=== PATIENT | male | born 1955 | race Caucasian/White ===

== ENCOUNTER 2021-02-27 09:32 | Outpatient (CLI) | payer OTHER ==
--- NOTE | 2021-02-27 10:15 | XRAY Report ---
PROCEDURE: Elbow 2 View RT INDICATIONS: BURSITIS, R ELBOW TECHNIQUE: AP and lateral views of the elbow were acquired. COMPARISON: None FINDINGS: Bones: No acute fractures or dislocations. No suspicious bony lesions. Small posteriorly: Spur. Soft tissues: Very small anterior elbow joint effusion. Moderate soft tissue swelling overlying the posterior elbow with more focal swelling overlying the olecranon. No suspicious soft tissue calcifica tions. IMPRESSION: Moderate soft tissue swelling of the right posterior elbow with more focal edema over the olecranon p rocess which has a small enthesophyte. Findings may represent sequela of olecranon bursitis although concurrent cellulitis not excluded if clinically appropriate. No underlying fracture or dislocation. Reviewed by: Jan Jo MD on 02/27/2021 10:14 AM PDT Approved by: Jan Jo MD on 02/27/2021 10:14 AM PDT Station ID: [id number]
== END 2021-02-27 23:59 | disposition home or self-care (01) ==
LOC: DI.N 09:32
PROVIDERS: ATTEND Family Medicine
DX: M70.31 Other bursitis of elbow, right elbow (principal); M77.8 Other enthesopathies, not elsewhere classified

== ENCOUNTER 2021-03-21 08:00 | Outpatient (CLI) | payer OTHER | END 2021-03-21 08:01 | disposition home or self-care (01) | LOC: LAB.N 08:00 | PROVIDERS: ATTEND Emergency Medicine | DX: L03.113 Cellulitis of right upper limb (principal) | CPT/HCPCS: 87070; 87205 ==

== ENCOUNTER 2021-05-15 08:00 | Outpatient (CLI) | payer OTHER | END 2021-05-15 23:59 | disposition home or self-care (01) | LOC: LAB.N 08:00 | PROVIDERS: ATTEND Nurse Practitioner | DX: R07.0 Pain in throat (principal); Z20.822 Contact with and (suspected) exposure to COVID-19 | CPT/HCPCS: 87070; 87077 ==

== ENCOUNTER 2022-05-22 08:00 | Outpatient (CLI) | payer OTHER ==
--- NOTE | 2022-05-23 07:55 | XRAY Report ---
PROCEDURE: Knee 3 View RT INDICATIONS: PREPATELLAR BURSITIS OF R KNEE TECHNIQUE: 3 views of the right knee(s) were acquired. COMPARISON: None. FINDINGS: Bones: No fractures or dislocations. No suspicious bony lesions. A patellar tendon enthesophyte is present at the patella. Mild medial and patellofemoral compartment narrowing and spurring. Soft tissues: Trace joint effusion. No suspicious soft tissue calcifications. IMPRESSION: 1. No acute fracture visualized. 2. Trace joint effusion. Reviewed by: González Whiteside MD on 05/23/2022 7:54 AM PDT Approved by: González Whiteside MD on 05/23/2022 7:54 AM PDT Station ID: [id number]
== END 2022-05-22 23:59 | disposition home or self-care (01) ==
LOC: DI.N 08:00
PROVIDERS: ATTEND Physician Assistant
DX: M70.41 Prepatellar bursitis, right knee (principal); M25.461 Effusion, right knee

== ENCOUNTER 2022-06-19 08:00 | Outpatient (CLI) | payer OTHER ==
[2022-06-19 18:14] LABS: BASOPHILS % (AUTO) 0.3 %; HCT - HEMATOCRIT 38.3 % (42.0-52.0); HGB - HEMOGLOBIN 12.9 g/dL (14.0-18.0); LYMPHOCYTES # (AUTO) 1.3 10^3/uL (1.5-3.5); LYMPHOCYTES % (AUTO) 18.4 %; MEAN CORPUSCULAR HEMOGLOBIN 34.1 pg (27.0-31.0); MEAN CORPUSCULAR HGB CONC 33.7 g/dL (32.0-36.0); MEAN CORPUSCULAR VOLUME 101.3 fL (80.0-94.0); MONOCYTES # (AUTO) 0.9 10^3/uL (0.0-1.0); PLT - PLATELET COUNT 297 10^3/uL (130-450); RED BLOOD COUNT 3.78 10^6/uL (4.70-6.10); RED CELL DISTRIBUTION WIDTH 13.7 % (12.0-15.0); WHITE BLOOD COUNT 7.2 x10^3/uL (4.8-10.8)
[2022-06-19 18:47] LABS: ALBUMIN 4.8 g/dL (3.2-5.5); ALBUMIN/GLOBULIN RATIO 1.3 (1.0-2.2); ALKALINE PHOSPHATASE 60 IU/L (42-121); ALT ALANINE AMINOTRANSFERASE 22 IU/L (10-60); AST ASPARTATE AMINOTRANSFERASE 25 IU/L (10-42); BILIRUBIN,TOTAL 0.9 mg/dL (0.2-1.0); BUN - BLOOD UREA NITROGEN 23 mg/dL (6-20); CALCIUM 9.6 mg/dL (8.5-10.3); CARBON DIOXIDE - CO2 29 mmol/L (21-32); CHLORIDE 98 mmol/L (101-111); GFR - MDRD 75 (>89); GLUCOSE 104 mg/dL (70-100); POTASSIUM 4.5 mmol/L (3.5-5.0); SODIUM 135 mmol/L (135-145); TOTAL PROTEIN 8.4 g/dL (6.7-8.2); URIC ACID 8.5 mg/dL (2.6-7.2)
[2022-06-19 19:06] LABS: CRP - C-REACTIVE PROTEIN < 1.0 mg/dL (0-1.0)
== END 2022-06-19 23:59 | disposition home or self-care (01) ==
LOC: LAB.N 08:00
PROVIDERS: ATTEND Registered Nurse
DX: M70.41 Prepatellar bursitis, right knee (principal)
CPT/HCPCS: 36415; 80053; 84550; 85025; 85651; 86140

== ENCOUNTER 2023-06-17 07:27 | Outpatient (CLI) | payer OTHER, MEDICARE ==
[2023-06-17 12:25] LABS: BASOPHILS # (AUTO) 0.1 10^3/uL (0.0-0.1); BASOPHILS % (AUTO) 0.4 %; EOSINOPHILS # (AUTO) 0.1 10^3/uL (0.0-0.7); EOSINOPHILS % (AUTO) 1.2 %; HCT - HEMATOCRIT 40.8 % (42.0-52.0); HGB - HEMOGLOBIN 14.3 g/dL (14.0-18.0); LYMPHOCYTES # (AUTO) 1.1 10^3/uL (1.5-3.5); LYMPHOCYTES % (AUTO) 9.4 %; MEAN CORPUSCULAR HEMOGLOBIN 34.6 pg (27.0-31.0); MEAN CORPUSCULAR VOLUME 98.8 fL (80.0-94.0); MEAN PLATELET VOLUME 10.2 fL (7.4-11.4); MONOCYTES # (AUTO) 1.5 10^3/uL (0.0-1.0); MONOCYTES % (AUTO) 13.5 %; NEUTROPHILS # (AUTO) 8.5 10^3/uL (1.5-6.6); NEUTROPHILS % (AUTO) 75.2 %; PLT - PLATELET COUNT 311 10^3/uL (130-450); RED BLOOD COUNT 4.13 10^6/uL (4.70-6.10); RED CELL DISTRIBUTION WIDTH 13.1 % (12.0-15.0); WHITE BLOOD COUNT 11.3 x10^3/uL (4.8-10.8)
[2023-06-17 12:49] LABS: ALBUMIN 4.4 g/dL (3.2-5.5); ALBUMIN/GLOBULIN RATIO 1.6 (1.0-2.2); ALKALINE PHOSPHATASE 68 IU/L (42-121); ALT ALANINE AMINOTRANSFERASE 18 IU/L (10-60); AST ASPARTATE AMINOTRANSFERASE 24 IU/L (10-42); BILIRUBIN,TOTAL 0.7 mg/dL (0.2-1.0); BUN - BLOOD UREA NITROGEN 18 mg/dL (6-20); CALCIUM 9.4 mg/dL (8.5-10.3); CARBON DIOXIDE - CO2 25 mmol/L (21-32); CHLORIDE 92 mmol/L (101-111); CHOL/HDL RATIO 2.1 (<5.0); CHOLESTEROL 160 mg/dL; CREATININE 1.7 mg/dL (0.6-1.3); GFR - MDRD 41 (>89); GLUCOSE 115 mg/dL (74-104); HDL CHOLESTEROL 76 mg/dL; LDL CHOLESTEROL,CALCULATED 55 mg/dL; LDL/HDL RATIO 0.7 (<3.6); POTASSIUM 3.7 mmol/L (3.5-4.5); SODIUM 128 mmol/L (135-145); TOTAL PROTEIN 7.1 g/dL (6.4-8.9); TRIGLYCERIDES 146 mg/dL (48-352); VLDL CHOLESTEROL 29 mg/dL
[2023-06-17 12:56] LABS: THYROID STIMULATING HORMONE 2.44 uIU/mL (0.34-5.60)
== END 2023-06-17 07:28 | disposition home or self-care (01) ==
LOC: LAB.N 07:27
PROVIDERS: ATTEND Nurse Practitioner Family
DX: I10 Essential (primary) hypertension (principal); E78.5 Hyperlipidemia, unspecified; M10.361 Gout due to renal impairment, right knee; Z12.5 Encounter for screening for malignant neoplasm of prostate
CPT/HCPCS: 36415; 80053; 80061; 83721; 84153; 84443; 85025

== ENCOUNTER 2023-07-07 07:52 | Outpatient (CLI) | payer MEDICARE, OTHER ==
[2023-07-07 12:12] LABS: BASOPHILS # (AUTO) 0.1 10^3/uL (0.0-0.1); BASOPHILS % (AUTO) 1.5 %; EOSINOPHILS # (AUTO) 0.1 10^3/uL (0.0-0.7); EOSINOPHILS % (AUTO) 1.8 %; HCT - HEMATOCRIT 40.7 % (42.0-52.0); HGB - HEMOGLOBIN 14.1 g/dL (14.0-18.0); LYMPHOCYTES # (AUTO) 1.3 10^3/uL (1.5-3.5); LYMPHOCYTES % (AUTO) 23.7 %; MEAN CORPUSCULAR HEMOGLOBIN 33.7 pg (27.0-31.0); MEAN CORPUSCULAR HGB CONC 34.6 g/dL (32.0-36.0); MEAN CORPUSCULAR VOLUME 97.4 fL (80.0-94.0); MONOCYTES # (AUTO) 0.7 10^3/uL (0.0-1.0); MONOCYTES % (AUTO) 12.3 %; NEUTROPHILS # (AUTO) 3.3 10^3/uL (1.5-6.6); NEUTROPHILS % (AUTO) 60.5 %; PLT - PLATELET COUNT 332 10^3/uL (130-450); RED BLOOD COUNT 4.18 10^6/uL (4.70-6.10); RED CELL DISTRIBUTION WIDTH 12.9 % (12.0-15.0); WHITE BLOOD COUNT 5.4 x10^3/uL (4.8-10.8)
[2023-07-07 13:11] LABS: ALBUMIN 4.8 g/dL (3.2-5.5); ALBUMIN/GLOBULIN RATIO 1.5 (1.0-2.2); BILIRUBIN,TOTAL 0.6 mg/dL (0.2-1.0); CALCIUM 9.8 mg/dL (8.5-10.3); CREATININE 0.9 mg/dL (0.6-1.3); POTASSIUM 4.6 mmol/L (3.5-4.5); TOTAL PROTEIN 7.9 g/dL (6.4-8.9)
== END 2023-07-07 07:53 | disposition home or self-care (01) ==
LOC: LAB.N 07:52
PROVIDERS: ATTEND Nurse Practitioner Family
DX: I10 Essential (primary) hypertension (principal); R79.89 Other specified abnormal findings of blood chemistry; E87.1 Hypo-osmolality and hyponatremia; D64.89 Other specified anemias
CPT/HCPCS: 36415; 80053; 85025

== ENCOUNTER 2024-02-23 08:22 | Outpatient (CLI) | payer MEDICARE, OTHER ==
[2024-02-23 12:29] LABS: BASOPHILS # (AUTO) 0.1 10^3/uL (0.0-0.1); EOSINOPHILS # (AUTO) 0.1 10^3/uL (0.0-0.7); EOSINOPHILS % (AUTO) 1.8 %; HGB - HEMOGLOBIN 13.3 g/dL (14.0-18.0); LYMPHOCYTES % (AUTO) 19.6 %; MEAN CORPUSCULAR HEMOGLOBIN 33.3 pg (27.0-31.0); MEAN CORPUSCULAR HGB CONC 34.1 g/dL (32.0-36.0); MEAN CORPUSCULAR VOLUME 97.5 fL (80.0-94.0); MEAN PLATELET VOLUME 9.5 fL (7.4-11.4); MONOCYTES # (AUTO) 0.6 10^3/uL (0.0-1.0); MONOCYTES % (AUTO) 11.7 %; NEUTROPHILS # (AUTO) 3.2 10^3/uL (1.5-6.6); NEUTROPHILS % (AUTO) 64.7 %; PLT - PLATELET COUNT 355 10^3/uL (130-450); RED CELL DISTRIBUTION WIDTH 12.9 % (12.0-15.0); WHITE BLOOD COUNT 4.9 x10^3/uL (4.8-10.8)
[2024-02-23 12:33] LABS: RHEUMATOID FACTOR NEGATIVE (Negative)
[2024-02-23 12:57] LABS: ALBUMIN 4.9 g/dL (3.2-5.5); ALBUMIN/GLOBULIN RATIO 1.6 (1.0-2.2); BILIRUBIN,TOTAL 0.7 mg/dL (0.2-1.0); CALCIUM 10.2 mg/dL (8.5-10.3); CREATININE 0.9 mg/dL (0.6-1.3); POTASSIUM 4.7 mmol/L (3.5-4.5); URIC ACID 6.5 mg/dL (4.4-7.6)
== END 2024-02-23 08:23 | disposition home or self-care (01) ==
LOC: LAB.N 08:22
PROVIDERS: ATTEND Nurse Practitioner Family
DX: I10 Essential (primary) hypertension (principal); E78.5 Hyperlipidemia, unspecified; E79.0 Hyperuricemia without signs of inflammatory arthritis and tophaceous disease; M25.562 Pain in left knee
CPT/HCPCS: 36415; 80053; 84550; 85025; 86430

== ENCOUNTER 2024-02-23 08:27 | Outpatient (CLI) | payer MEDICARE, OTHER ==
--- NOTE | 2024-02-23 11:10 | XRAY Report ---
Knee 4+V LT HISTORY: 68 years of age, KNEE PAIN, LEFT, CHRONIC TECHNIQUE: Knee 4+V LT COMPARISON: None. FINDINGS/IMPRESSION: Moderate left knee effusion. Mild genu varus. Moderate, patellofemoral compartment predominant tricom partmental osteoarthritis. No acute fracture or dislocation. Reviewed by: Felicia Zafar MD on 02/23/2024 11:09 AM PDT Approved by: Felicia Zafar MD on 02/23/2024 11:09 AM PDT Station ID: [id number]
== END 2024-02-23 08:28 | disposition home or self-care (01) ==
LOC: DI.N 08:27
PROVIDERS: ATTEND Nurse Practitioner Family
DX: M17.12 Unilateral primary osteoarthritis, left knee (principal); M25.462 Effusion, left knee
CPT/HCPCS: 36415; 80053; 84550; 85025; 86430

== ENCOUNTER 2024-03-26 07:27 | Outpatient (CLI) | payer MEDICARE, OTHER ==
[2024-03-26 12:22] LABS: BASOPHILS # (AUTO) 0.1 10^3/uL (0.0-0.1); BASOPHILS % (AUTO) 1.3 %; EOSINOPHILS # (AUTO) 0.1 10^3/uL (0.0-0.7); EOSINOPHILS % (AUTO) 2.4 %; HCT - HEMATOCRIT 38.8 % (42.0-52.0); HGB - HEMOGLOBIN 12.5 g/dL (14.0-18.0); LYMPHOCYTES # (AUTO) 1.6 10^3/uL (1.5-3.5); LYMPHOCYTES % (AUTO) 34.3 %; MEAN CORPUSCULAR HEMOGLOBIN 33.2 pg (27.0-31.0); MEAN CORPUSCULAR HGB CONC 32.2 g/dL (32.0-36.0); MEAN CORPUSCULAR VOLUME 103.2 fL (80.0-94.0); MEAN PLATELET VOLUME 9.8 fL (7.4-11.4); MONOCYTES # (AUTO) 0.5 10^3/uL (0.0-1.0); MONOCYTES % (AUTO) 10.3 %; NEUTROPHILS # (AUTO) 2.4 10^3/uL (1.5-6.6); NEUTROPHILS % (AUTO) 51.5 %; PLT - PLATELET COUNT 268 10^3/uL (130-450); RED BLOOD COUNT 3.76 10^6/uL (4.70-6.10); RED CELL DISTRIBUTION WIDTH 14.1 % (12.0-15.0); WHITE BLOOD COUNT 4.7 x10^3/uL (4.8-10.8)
[2024-03-26 12:40] LABS: BUN - BLOOD UREA NITROGEN 15 mg/dL (6-20); CALCIUM 9.4 mg/dL (8.5-10.3); CARBON DIOXIDE - CO2 25 mmol/L (21-32); CHLORIDE 105 mmol/L (101-111); CHOL/HDL RATIO 2.1 (<5.0); CHOLESTEROL 144 mg/dL; GFR - MDRD 75 (>89); GLUCOSE 117 mg/dL (74-104); HDL CHOLESTEROL 67 mg/dL; LDL CHOLESTEROL,CALCULATED 50 mg/dL; LDL/HDL RATIO 0.7 (<3.6); POTASSIUM 4.3 mmol/L (3.5-4.5); SODIUM 137 mmol/L (135-145); TRIGLYCERIDES 137 mg/dL; VLDL CHOLESTEROL 27 mg/dL
[2024-03-26 14:34] LABS: RHEUMATOID FACTOR NEGATIVE (Negative)
== END 2024-03-26 07:28 | disposition home or self-care (01) ==
LOC: LAB.N 07:27
PROVIDERS: ATTEND Nurse Practitioner Family
DX: E87.1 Hypo-osmolality and hyponatremia (principal); E78.5 Hyperlipidemia, unspecified; D64.89 Other specified anemias; M25.562 Pain in left knee; G89.29 Other chronic pain
CPT/HCPCS: 36415; 80048; 80061; 83721; 85025; 86430

== ENCOUNTER 2024-05-19 13:51 | Outpatient (CLI) | payer MEDICARE, OTHER ==
[2024-05-19 18:02] LABS: ABSOLUTE RETICS # AUTO 0.062 10^6/uL (0.020-0.110); BASOPHILS # (AUTO) 0.1 10^3/uL (0.0-0.1); EOSINOPHILS # (AUTO) 0.1 10^3/uL (0.0-0.7); EOSINOPHILS % (AUTO) 1.2 %; HCT - HEMATOCRIT 40.4 % (42.0-52.0); HGB - HEMOGLOBIN 13.5 g/dL (14.0-18.0); LYMPHOCYTES # (AUTO) 1.5 10^3/uL (1.5-3.5); LYMPHOCYTES % (AUTO) 24.5 %; MEAN CORPUSCULAR HEMOGLOBIN 34.3 pg (27.0-31.0); MEAN CORPUSCULAR HGB CONC 33.4 g/dL (32.0-36.0); MEAN CORPUSCULAR VOLUME 102.5 fL (80.0-94.0); MEAN PLATELET VOLUME 10.2 fL (7.4-11.4); MONOCYTES # (AUTO) 0.7 10^3/uL (0.0-1.0); MONOCYTES % (AUTO) 12.3 %; NEUTROPHILS # (AUTO) 3.6 10^3/uL (1.5-6.6); NEUTROPHILS % (AUTO) 60.7 %; PLT - PLATELET COUNT 315 10^3/uL (130-450); RED BLOOD COUNT 3.94 10^6/uL (4.70-6.10); RED CELL DISTRIBUTION WIDTH 13.7 % (12.0-15.0); RETICULOCYTE COUNT % (AUTO) 1.58 % (0.5-2.3); WHITE BLOOD COUNT 5.9 x10^3/uL (4.8-10.8)
[2024-05-19 18:27] LABS: ALBUMIN 4.6 g/dL (3.2-5.5); ALBUMIN/GLOBULIN RATIO 1.4 (1.0-2.2); BILIRUBIN,TOTAL 0.7 mg/dL (0.2-1.0); CALCIUM 9.9 mg/dL (8.5-10.3); POTASSIUM 4.5 mmol/L (3.5-4.5); TOTAL PROTEIN 7.8 g/dL (6.4-8.9)
== END 2024-05-19 13:52 | disposition home or self-care (01) ==
LOC: LAB.N 13:51
PROVIDERS: ATTEND Nurse Practitioner Family
DX: Z79.899 Other long term (current) drug therapy (principal); D53.9 Nutritional anemia, unspecified; I10 Essential (primary) hypertension
CPT/HCPCS: 36415; 80053; 82607; 82746; 85025; 85045

== ENCOUNTER 2024-05-19 13:58 | Outpatient (CLI) | payer MEDICARE, OTHER ==
--- NOTE | 2024-05-19 15:00 | XRAY Report ---
PROCEDURE: Knee 2V LT INDICATIONS: OSTEOARTHRITIS KNEE, LEFT TECHNIQUE: 2 views of the knee(s) were acquired. COMPARISON: None. FINDINGS: Bones: No fractures or dislocations. No suspicious bony lesions. Tricompartmental joint space alberto rowing with associated osteophytosis. Soft tissues: Small knee joint effusion. No suspicious soft tissue calcifications or masses. IMPRESSION: No acute bony abnormality. Small knee joint effusion. Mild to moderate tricompartmental osteoarthritis. Kellgren-Freddy scale of osteoarthritis: 2. Reviewed by: Alban Madden MD on 05/19/2024 2:59 PM PDT Approved by: Alban Madden MD on 05/19/2024 2:59 PM PDT Station ID: [id number]
== END 2024-05-19 13:59 | disposition home or self-care (01) ==
LOC: DI.N 13:58
PROVIDERS: ATTEND Physician Assistant Surgical
DX: M17.9 Osteoarthritis of knee, unspecified (principal); M25.462 Effusion, left knee
CPT/HCPCS: 36415; 80053; 82607; 82746; 85025; 85045